=== PATIENT | female | born 1940 | race Caucasian/White ===

== ENCOUNTER 2016-11-03 08:08 | Outpatient (CLI) ==
[2016-11-03 15:35] LABS: BILIRUBIN,URINE Negative (NEGATIVE); KETONES,URINE Negative (NEGATIVE); LEUKOCYTE ESTERASE ,URINE Negative (NEGATIVE); NITRITE,URINE Negative (NEGATIVE); PROTEIN,URINE Negative (NEGATIVE); URINE, BLOOD Trace-intact (NEGATIVE)
[2016-11-03 15:36] LABS: BASOPHILS # (AUTO) 0.1 K/uL (0-0.2); BASOPHILS % (AUTO) 1.1 % (0.0-3.0); EOSINOPHILS # (AUTO) 0.2 K/ul (0.0-0.7); EOSINOPHILS % (AUTO) 3.1 % (0.0-7.0); HEMATOCRIT 38.4 % (37.0-47.0); HEMOGLOBIN 12.8 g/dl (12.0-16.0); IMMATURE GRANULOCYTE % (AUTO) 0.2 % (0.0-5.0); LYMPHOCYTES % (AUTO) 31.4 (10.0-50.0); MEAN CORPUSCULAR HEMOGLOBIN 27.4 pg (27.0-31.0); MEAN CORPUSCULAR HGB CONC 33.3 (31.8-35.4); MEAN CORPUSCULAR VOLUME 82.1 fl (81.0-99.0); MONOCYTES # (AUTO) 0.5 K/uL (0.4-2.0); MONOCYTES % (AUTO) 8.1 (0-10); NEUTROPHILS # (AUTO) 3.6 K/ul (2.0-6.9); NEUTROPHILS % (AUTO) 56.1; PLATELET COUNT 392 10^3/uL (140-440); RED BLOOD COUNT 4.68 10^6/ul (4.20-5.40); WHITE BLOOD COUNT 6.44 K/ul (4.6-10.2)
[2016-11-03 15:47] LABS: ANISOCYTOSIS 1+ (NOT PRESENT)
[2016-11-03 15:51] LABS: ADD URINE MICROSCOPIC YES
[2016-11-03 15:52] LABS: BACTERIA,URINE 1+ (NOT PRESENT)
[2016-11-03 16:11] LABS: ALBUMIN 3.9 g/dL (3.4-5.0); ALBUMIN/GLOBULIN RATIO 0.89; ANION GAP 16.6; BILIRUBIN,TOTAL 0.48 mg/dL (0.00-1.20); BUN/CREATININE RATIO 8.65; CHOL/HDL RATIO 3.9 (4.5-5.5); CREATININE 1.04 mg/dL (0.60-1.30); POTASSIUM 3.6 mmol/L (3.5-5.10); TOTAL PROTEIN 8.3 g/dL (5.8-8.1)
== END 2016-11-03 08:09 | disposition home or self-care (01) ==
LOC: LAB 08:08
PROVIDERS: ATTEND General Practice
DX: E78.5 Hyperlipidemia, unspecified (principal); I10 Essential (primary) hypertension; N18.3 Chronic kidney disease, stage 3 (moderate); Z79.899 Other long term (current) drug therapy
CPT/HCPCS: 36415; 80053; 80061; 81001; 85008; 85025

== ENCOUNTER 2016-11-11 12:37 | Outpatient (CLI) | payer OTHER ==
--- NOTE | 2016-11-11 13:59 | CT ---
EXAM: CT THORAX HISTORY: Chest pain and shortness of breath, lower left rib pain without injury. TECHNIQUE: CT thorax without intravenous contrast. 5-mm axial sections. Coronal and sagittal re-fo rmations. COMPARISON: None FINDINGS: Normal heart size. Trace pericardial fluid. There is moderate atherosclerotic disease of the aorta . A few nonspecific small mediastinal lymph nodes are seen. Lungs are hyperinflated. There is evidence of at least moderate chronic obstructive pulmonary disea se and scattered fibrosis. There is mild increased interstitial thickening in the right lung base wh ich could indicate acute infiltrate or additional or fibrosis. There is no pleural fluid or vascula r congestion. No pneumothorax. Biapical pleuroparenchymal thickening is likely related to fibrosis . There is no fracture or acute bony deformity identified. IMPRESSION: 1. Moderately severe chronic obstructive pulmonary disease is suggested, correlate clinically. 2. Questionable subtle right lung base pneumonia. 3. Atherosclerotic disease versus greater regional fibrosis. 4. No acute bony abnormality.
== END 2016-11-11 12:38 | disposition home or self-care (01) ==
LOC: RAD 12:37
PROVIDERS: ATTEND General Practice
DX: R07.9 Chest pain, unspecified (principal); Z72.0 Tobacco use

== ENCOUNTER 2016-12-15 10:46 | Outpatient (CLI) | payer OTHER ==
--- NOTE | 2016-12-15 11:53 | DI ---
EXAM: LEFT RIBS HISTORY: Chest pain FINDINGS: Left ribs three-view. No displaced fracture is identified. Left lung is clear. Incident al note of moderate atherosclerotic disease. IMPRESSION: Atherosclerosis. No rib fracture.
--- NOTE | 2016-12-15 11:53 | DI ---
EXAM: Radiographs, thoracic spine HISTORY: Thoracic spine pain. COMPARISON: Chest CT 11/11/2016. TECHNIQUE: Three-view. FINDINGS: Right convex curvature centered near the thoracolumbar junction noted. Alignment is norm al. Vertebral body heights are maintained. Disc heights are normal. No fracture or subluxation id entified. Soft tissues are unremarkable. IMPRESSION: No acute abnormality of the thoracic spine.
--- NOTE | 2016-12-15 11:56 | DI ---
EXAM: Radiographs, lumbar spine HISTORY: Low back pain. COMPARISON: None available. TECHNIQUE: Five views. FINDINGS: Right convex curvature centered near the thoracolumbar junction noted. Alignment is norm al. Vertebral body heights are maintained. There is moderate loss of disc height at L4-5 and mild loss of disc height at L2-3. Mild endplate osteophyte formation is present. Multilevel facet arthr opathy is greater in the lower lumbar spine. No fracture or subluxation detected. Sacral arcuate l mary are intact. Extensive aortic atherosclerotic calcifications noted. IMPRESSION: 1. Multilevel degenerative disc disease, greatest at L4-5. 2. Multilevel facet arthropathy, greater in the lower lumbar spine. 3. Right convex thoracolumbar curvature.
== END 2016-12-15 10:47 | disposition home or self-care (01) ==
LOC: RAD 10:46
PROVIDERS: ATTEND General Practice
DX: M54.6 Pain in thoracic spine (principal); M54.5 Low back pain; R07.9 Chest pain, unspecified

== ENCOUNTER 2017-02-03 09:15 | Outpatient (CLI) ==
--- NOTE | 2017-02-03 10:11 | US ---
EXAM: Ultrasound bilateral carotid duplex. HISTORY: Left carotid artery stenosis. COMPARISON: 07/26/2016. TECHNIQUE: Multiple powers scale and color Doppler images were obtained. FINDINGS: Please note that estimates of internal carotid artery stenoses are based upon NASCET rosanna eldridge. Right carotid: Calcified and soft plaquing noted without visualized 50% or greater stenosis. Peak systolic velocity measurement in the right internal carotid artery is 1.2 meters per second. Right internal to common carotid artery peak systolic velocity ratio measures 1.1. End diastolic velocity measurement in the right internal carotid artery is 0.3 meters per second. Flow in the right verte bral artery is antegrade. Left carotid: Calcified and soft plaquing noted. Calcified plaquing causes shadowing that is limit s evaluation for degree of stenosis. There may be a 50% stenosis in the proximal internal carotid a rtery. Peak systolic velocity measurement in the left internal carotid artery is 1.6 meters per sec ond. Left internal to common carotid artery peak systolic velocity ratio measures 1.5. End diastol ic velocity measurement in the left internal carotid artery measures 0.4 meters per second. Flow in the left vertebral artery is not identified. IMPRESSION: 1. Moderate, 50-69%, left internal carotid artery stenosis. 2. No evidence for 50% or greater stenosis in the right internal carotid artery. 3. Left vertebral artery flow is not identified which could be technical. Stenosis or occlusion no t excluded in the appropriate setting. 4. Antegrade flow in the right vertebral artery.
== END 2017-02-03 09:16 | disposition home or self-care (01) ==
LOC: RAD 09:15
PROVIDERS: ATTEND General Practice
DX: I65.22 Occlusion and stenosis of left carotid artery (principal); R09.89 Other specified symptoms and signs involving the circulatory and respiratory systems

== ENCOUNTER 2017-02-08 09:50 | Outpatient (CLI) ==
[2017-02-08 13:08] LABS: BILIRUBIN,URINE Negative (NEGATIVE); KETONES,URINE Negative (NEGATIVE); LEUKOCYTE ESTERASE ,URINE Negative (NEGATIVE); NITRITE,URINE Negative (NEGATIVE); PROTEIN,URINE Negative (NEGATIVE); URINE, BLOOD Negative (NEGATIVE)
[2017-02-08 13:21] LABS: ALBUMIN 3.6 g/dL (3.4-5.0); ALBUMIN/GLOBULIN RATIO 0.9; ANION GAP 18.9; BILIRUBIN,TOTAL 0.26 mg/dL (0.00-1.20); BUN/CREATININE RATIO 8.82; CALCIUM 9.7 mg/dL (8.2-10.2); CHOL/HDL RATIO 4.3 (4.5-5.5); CREATININE 1.02 mg/dL (0.60-1.30); POTASSIUM 3.9 mmol/L (3.5-5.10); TOTAL PROTEIN 7.6 g/dL (5.8-8.1)
[2017-02-08 13:23] LABS: BASOPHILS # (AUTO) 0.1 K/uL (0-0.2); BASOPHILS % (AUTO) 1.1 % (0.0-3.0); EOSINOPHILS # (AUTO) 0.1 K/ul (0.0-0.7); EOSINOPHILS % (AUTO) 1.6 % (0.0-7.0); HEMOGLOBIN 11.8 g/dl (12.0-16.0); IMMATURE GRANULOCYTE % (AUTO) 0.2 % (0.0-5.0); LYMPHOCYTES % (AUTO) 33.2 (10.0-50.0); MEAN CORPUSCULAR HEMOGLOBIN 24.8 pg (27.0-31.0); MEAN CORPUSCULAR HGB CONC 31.9 (31.8-35.4); MEAN CORPUSCULAR VOLUME 77.7 fl (81.0-99.0); MONOCYTES # (AUTO) 0.6 K/uL (0.4-2.0); MONOCYTES % (AUTO) 9.2 (0-10); NEUTROPHILS # (AUTO) 3.3 K/ul (2.0-6.9); NEUTROPHILS % (AUTO) 54.7; PLATELET COUNT 432 10^3/uL (140-440); RED BLOOD COUNT 4.76 10^6/ul (4.20-5.40); WHITE BLOOD COUNT 6.09 K/ul (4.6-10.2)
[2017-02-08 14:15] LABS: ADD URINE MICROSCOPIC YES
[2017-02-08 14:29] LABS: BACTERIA,URINE TRACE (NOT PRESENT)
== END 2017-02-08 09:51 | disposition home or self-care (01) ==
LOC: LAB 09:50
PROVIDERS: ATTEND General Practice
DX: I13.10 Hypertensive heart and chronic kidney disease without heart failure, with stage 1 through stage 4 chronic kidney disease, or unspecified chronic kidney disease (principal); N18.3 Chronic kidney disease, stage 3 (moderate); I77.9 Disorder of arteries and arterioles, unspecified; M54.5 Low back pain; R31.29 Other microscopic hematuria; I65.22 Occlusion and stenosis of left carotid artery; R09.89 Other specified symptoms and signs involving the circulatory and respiratory systems; E61.1 Iron deficiency; Z79.899 Other long term (current) drug therapy
CPT/HCPCS: 36415; 80053; 80061; 81001; 85025

== ENCOUNTER 2017-02-15 11:29 | Outpatient (CLI) ==
--- NOTE | 2017-02-15 12:23 | CT ---
EXAM: CT scan of the chest without contrast HISTORY: Weight loss, cough, smoker TECHNIQUE: Imaging of the chest was performed without contrast. 5 mm thin axial images and coronal and sagittal images were provided for interpretation. Comparison 11/11/2016. FINDINGS: There is stable appearance of a small noncalcified pulmonary nodule seen in the left lowe r lobe of the lung seen on axial image number 28. The findings measure approximately 3 mm maximum. Emphysematous changes are seen throughout the lungs. There is hyperinflation of the lungs. There is stable appearance of a small Pulmonary nodule seen in the left lower lobe of the lung seen on axial image number 46. The finding s measure 3.4 mm maximum. The lungs are otherwise clear. The heart is normal size. No mediastinal m asses are seen. There is diffuse atherosclerotic calcification of the thoracic aorta and coronary a rteries. No lytic or blastic lesions are seen within the osseous structures. There is a small nonob structing calculus seen within the inferior pole of the left kidney. IMPRESSION: There is stable appearance of two small noncalcified pulmonary nodules seen in the left lower lobe of the lung as described above. The findings measure 3-4 mm maximum. A 6-month follow-u p CT scan of the chest without contrast can be performed. Pulmonary emphysema.
[2017-02-15 15:41] LABS: OCCULT BLOOD INTERNAL QC 1 INTERNAL QC VALID; OCCULT BLOOD INTERNAL QC 2 INTERNAL QC VALID; OCCULT BLOOD INTERNAL QC 3 INTERNAL QC VALID; OCCULT BLOOD SAMPLE 1 NEGATIVE (NEGATIVE); OCCULT BLOOD SAMPLE 2 NO SPECIMEN RECEIVED (NEGATIVE); OCCULT BLOOD SAMPLE 3 NO SPECIMEN RECEIVED (NEGATIVE)
== END 2017-02-15 11:30 | disposition home or self-care (01) ==
LOC: RAD 11:29
PROVIDERS: ATTEND General Practice
DX: R63.4 Abnormal weight loss (principal); M89.9 Disorder of bone, unspecified; R05 Cough; F17.200 Nicotine dependence, unspecified, uncomplicated
CPT/HCPCS: 36415; 82272; 82306; 84443

== ENCOUNTER 2017-03-19 11:00 | Emergency (ER) ==
[2017-03-19] MEDS ORDERED: SODIUM CHLORIDE 1,000 ML IV STA (11:09)
[2017-03-19 11:10] VITALS: BP 144/57; TEMP 97.7; BMI 19.1
[2017-03-19 11:24] LABS: BASOPHILS # (AUTO) 0.1 K/uL (0-0.2); BASOPHILS % (AUTO) 0.6 % (0.0-3.0); EOSINOPHILS # (AUTO) 0.1 K/ul (0.0-0.7); EOSINOPHILS % (AUTO) 1.5 % (0.0-7.0); HEMATOCRIT 36.2 % (37.0-47.0); HEMOGLOBIN 11.7 g/dl (12.0-16.0); IMMATURE GRANULOCYTE % (AUTO) 0.1 % (0.0-5.0); LYMPHOCYTES # (AUTO) 2.3 K/uL (0.60-3.4); LYMPHOCYTES % (AUTO) 28.6 (10.0-50.0); MEAN CORPUSCULAR HEMOGLOBIN 25.1 pg (27.0-31.0); MEAN CORPUSCULAR HGB CONC 32.3 (31.8-35.4); MEAN CORPUSCULAR VOLUME 77.7 fl (81.0-99.0); MONOCYTES # (AUTO) 0.6 K/uL (0.4-2.0); NEUTROPHILS # (AUTO) 4.8 K/ul (2.0-6.9); NEUTROPHILS % (AUTO) 61.2; PLATELET COUNT 346 10^3/uL (140-440); RED BLOOD COUNT 4.66 10^6/ul (4.20-5.40); WHITE BLOOD COUNT 7.91 K/ul (4.6-10.2)
[2017-03-19 11:39] LABS: PROTHROMBIN TIME 10.5 SEC (9.3-11.0)
--- NOTE | 2017-03-19 11:41 | CT ---
EXAM: CT brain without contrast HISTORY: Left hand numbness TECHNIQUE: Multi-slice sequential. Coronal and sagittal reformations were performed. COMPARISON: None FINDINGS: There is no acute intracranial hemorrhage, extraxial fluid collection, mass affect, or midlineshift. Encephalomalacia in the left basal ganglia is seen. There is slight ex vacuo dilatation of the fro ntal horn of the left lateral ventricle. There is mild diffuse sulcal prominence. Ventricular prom inence is consistent with the degree of parenchymal volume loss. Periventricular white matter hypod ensity is seen. Intracranial atherosclerosis is present. The basal cisterns are patent. The alex rium is unremarkable. Visualized paranasal sinuses are clear. Mastoid air cells are clear. IMPRESSION: 1. No acute intracranial findings. 2. Left basal ganglia region encephalomalacia, likely related to prior insult. 3. Age-related changes of mild parenchymal volume loss, small vessel ischemic disease, and intracra nial atherosclerosis. 4. If there is clinical concern for acute ischemia, recommend MRI brain.
--- NOTE | 2017-03-19 11:46 | CT ---
CT thorax with out IV contrast. Clinical indication: Pneumothorax. Cough. TECHNIQUE: Axial unenhanced CT images of the thorax were obtained followed by coronal and sagittal reformats. Comparison is made to the prior study dated 02/15/2017. Findings: There is moderate underlying centrilobular emphysema. There is interval development of a hazy ill-defined opacity within the mid left upper lobe which was not present in January. There is no interval change in the tiny left left lower lobe pulmonary nodules. The remainder the p ulmonary parenchyma is unremarkable. There is no pleural abnormality. There are no enlarged axillary, hilar or mediastinal lymph nodes, by size criteria. There are extensive coronary artery calcifications. There is evidence of prior cholecystectomy. There is a 0.4 cm nonobstructive left-sided renal calculus. The remainder the visualized portions o f the upper abdomen are unremarkable. The visualized bony structures are unremarkable for the patient's age. Impression: 1. Interval development of heterogeneous opacity within the left upper lung zone most consistent wi th infectious etiology. 2. Moderate underlying centrilobular emphysema. 3. Extensive coronary artery calcifications. 4. 0.4 cm left-sided nonobstructive renal calculus.
[2017-03-19 11:52] LABS: ALBUMIN 3.7 g/dL (3.4-5.0); ANION GAP 15.8; BILIRUBIN,TOTAL 0.31 mg/dL (0.00-1.20); BUN/CREATININE RATIO 9.4; CALCIUM 9.9 mg/dL (8.2-10.2); CREATININE 1.17 mg/dL (0.60-1.30); POTASSIUM 3.8 mmol/L (3.5-5.10); TOTAL PROTEIN 7.4 g/dL (5.8-8.1); TROPONIN I 0.018 ng/ml (0.0000-0.4000)
--- NOTE | 2017-03-19 11:55 | CT ---
EXAM: CT abdomen and pelvis without contrast. HISTORY: Abdominal pain and diarrhea TECHNIQUE: Multi-slice transaxial helical CT. Coronal and sagittal reformatons were performed. COMPARISON: CT chest from same day. FINDINGS: The heart is normal in size. A 4 mm pulmonary nodule is present within the left lower lobe. The amber gs appear emphysematous. Evaluation of the solid organs is limited without IV contrast. Multiple bilateral nonobstructing re nal calculi are present within the left kidney which measures up to 4 mm in the inferior pole of the left kidney. No hydronephrosis is seen. The spleen is normal in size. The gallbladder has been r emoved. No intrahepatic biliary ductal dilation is seen. The pancreas and the bilateral adrenal gl ands appear grossly unremarkable within the confines of a noncontrast exam. Multiple dilated small bowel loops within the left upper quadrant measure up to 2.5 cm in diameter. Air-fluid levels are present within the small bowel loops. Distal collapsed small bowel loops are present. No evidence of free fluid layering within the pelvis is seen. A large amount of calcified plaques are present within the abdominal aorta and its major branch vessels. No retroperitoneal ad enopathy is seen. The urinary bladder appears unremarkable. The uterus has been removed. Multiple diverticuli are seen within the colon without evidence of diverticulitis. IMPRESSION: 1. Dilated proximal small bowel loops with air-fluid levels with more collapsed distal small bowel loops. This is compatible with a low grade partial small bowel obstruction versus focal enteritis/i leus. 2. Colonic diverticulosis. 3. 4 mm left basilar pulmonary nodule. Recommend follow-up CT chest in 12 months per 2017 Fleischne r Society guidelines. 4. Pulmonary emphysema. 5. Bilateral nonobstructing renal calculi. No hydronephrosis. 6. Multiple other age-related changes as detailed above.
[2017-03-19 12:02] LABS: ESR INTERNAL QC INTERNAL QC VALID
[2017-03-19 12:03] LABS: ERYTHROCYTE SEDIMENTATION RATE 22 mm/hr (0-20)
--- NOTE | 2017-03-19 12:06 | ED.PDOC ---
General ED Provider: Dr. LIANA HANKS-ER Chief Complaint: Abdominal Pain Stated Complaint: i had abd crmping and nonbloody diarrhea and then my left hand went numb Time Seen by Physician: 12:04 Mode of Arrival: Wheelchair Information Source: Patient Exam Limitations: No limitations [facility] Documentation Reviewed and Agree: Yes Neurological Complaint Exam - Neurological Deficit Complaint/Exam Patient Complains of: Reports: Abnormal sensation Symptom Onset Unknown: Yes Onset: Sudden Symptoms Are: Still present Timing: Constant Episodes Lasting: Hours Initial Severity: Mild Current Severity: Mild Location: Reports: LUE Character: Reports: Numbness, Tingling, Sensory loss Aggravating: Reports: Hypertension Alleviating: Reports: None Associated Signs and Symptoms: Denies: Confusion, Agitation, Responsiveness, LOC , Headache, Fever, Nuchal rigidity, Recent trauma, Remote trauma, Recent illness Related History: Denies: Similar episode, Anticoagulant therapy CVA Risk Factors: Reports: Hypertension, Smoking SDH Risk Factors: Reports: Elderly Related Surgical History: Denies: None, Craniotomy, Tumor, Carotid Endarterectomy, Pacemaker, Artificial valve Meningeal Signs Positive: No Focal Weakness: Present: None Focal Sensory Loss: Present: LUE Gait: Normal Nystagmus Present: No Gag Reflex Present: Yes [id number]: Normal Findings Romberg Test Positive: No Babinski Sign: Negative Right, Negative Left Heel to Toe Normal: Yes Signs of Trauma: No IV t-PA Prescribed: No Differential Diagnoses: TIA Quality Indicator For Non-Traumatic Chest Pain/Syncope: EKG Performed Review of Systems - Review Of Systems Constitutional: Reports: No symptoms Eyes: Reports: No symptoms Ears, Nose, Mouth, Throat: Reports: No symptoms Respiratory: Reports: No symptoms Cardiac: Reports: No symptoms GI: Reports: Abdominal pain, Diarrhea : Reports: No symptoms Musculoskeletal: Reports: No symptoms Skin: Reports: No symptoms Neurological: Reports: Numbness, Tingling Endocrine: Reports: No symptoms Hematologic/Lymphatic: Reports: No symptoms All Other Systems: Reviewed and Negative Past Medical History - Past Medical History Previously Healthy: Yes Endocrine: Reports: Unknown Cardiovascular: Reports: Hypertension Respiratory: Reports: Other Hematological: Reports: Unknown Gastrointestinal: Reports: Unknown Genitourinary: Reports: Unknown Neuro/Psych: Reports: Unknown Musculoskeletal: Reports: Unknown Cancer: Reports: Unknown Last Menstrual Period: none - Surgical History General Surgical History: Reports: Unknown - Family History Family History: Reports: Unknown - Social History Smoking Status: Current every day smoker Hx Substance Use: No Alcohol Screening: None Lives: With family Physical Exam - Physical Exam Appearance: Well-appearing, No pain distress, Well-nourished Eyes: JUDSON, EOMI, Conjunctiva clear ENT: Ears normal, Nose normal, Oropharynx normal Neck: Supple Respiratory: Airway patent, Breath sounds clear, Breath sounds equal, Respirations nonlabored Cardiovascular: RRR, Pulses normal, No rub, No murmur GI/: Soft Musculoskeletal: Normal strength, ROM intact, No edema, No calf tenderness Skin: Warm, Dry, Normal color Neurological: Sensation intact, Motor intact, Reflexes intact, Cranial nerves intact, Alert, Oriented Psychiatric: Affect appropriate, Mood appropriate, Anxious Interpretation - Radiology Interpretation Radiology Interpretation By: Radiologist Radiology Results: Negative Exam Interpreted: CT Scan - EKG Interpretation Time of EKG #1: 12:07 Rate: Normal Rhythm: Sinus Ectopy: None Reading: NL ST Segment: Normal Interpretation: nsr Physician Notification - Case Discussed Physician Notified: dr up--suggested transfer for neurology Physician Notified: dr du--accepted Time of Notification: 12:11 Critical Care Note - Critical Care Note Total Time (mins): 30 Course - Course Hematology/Chemistry: 03/19/17 11:15 03/19/17 11:15 Orders, Labs, Meds: Lab Review 03/19/17 11:15 WBC 7.91 RBC 4.66 Hgb 11.7 L Hct 36.2 L MCV 77.7 L MCH 25.1 L MCHC 32.3 RDW Coeff of Amanda 17.4 H Plt Count 346 Immature Gran % (Auto) 0.1 Neut % (Auto) 61.2 Lymph % (Auto) 28.6 [place] % (Auto) 8.0 Eos % (Auto) 1.5 Baso % (Auto) 0.6 Immature Gran # (Auto) 0.0 Neut # 4.8 Lymph # 2.3 [place] # 0.6 Eos # 0.1 Baso # 0.1 ESR 22 H PT 10.5 INR 1.03 Sodium 137 Potassium 3.8 Chloride 102 Carbon Dioxide 23 Anion Gap 15.8 BUN 11 Creatinine 1.17 Estimated GFR (MDRD) 45.00 BUN/Creatinine Ratio 9.40 Glucose 129 H Calcium 9.9 Total Bilirubin 0.31 AST 15 ALT 8 L Alkaline Phosphatase 67 Total Creatine Kinase 54 Troponin I 0.0180 Total Protein 7.4 Albumin 3.7 Globulin 3.7 Albumin/Globulin Ratio 1.00 Amylase 119 H Lipase 55 Orders Category Date Time Status EKG-(ED ONLY) Stat CARDIO 03/19/17 11:08 Ordered AMYLASE Stat LAB 03/19/17 11:15 Completed CBC W/ AUTO DIFF Stat LAB 03/19/17 11:15 Completed COMPREHENSIVE METABOLIC PANEL Stat LAB 03/19/17 11:15 Completed CREATINE KINASE Stat LAB 03/19/17 11:15 Completed ESR Stat LAB 03/19/17 11:15 Completed LIPASE Stat LAB 03/19/17 11:15 Completed PT WITH INR Stat LAB 03/19/17 11:15 Completed TROPONIN I Stat LAB 03/19/17 11:15 Completed URINALYSIS C & S IF INDICATED Stat LAB 03/19/17 11:08 Uncollected 0.9 % Sodium Chloride [Saline Flush] MEDS 03/19/17 11:09 Active 1 syr IVF PRN PRN Sodium Chloride 0.9% [Sodium Chloride] 1,000 ml MEDS 03/19/17 11:09 Active IV 100 mls/hr CT ABDOMEN/PELVIS WO CONTRAST Stat RADS 03/19/17 11:[address] CHEST W/O CONTRAST Stat RADS 03/19/17 11:[address] HEAD W/O CONTRAST Stat RADS 03/19/17 11:09 Completed Medications Generic Name Dose Route Start Last Admin Trade Name Freq PRN Reason Stop Dose Admin Sodium Chloride 1,000 mls @ 100 mls/hr 03/19/17 11:09 03/19/17 11:42 Sodium Chloride IV 03/19/17 21:08 100 mls/hr .Q10H STA Administration Sodium Chloride 1 syr 03/19/17 11:09 Saline Flush IVF PRN PRN To flush IV Vital Signs: Temp Pulse Resp BP Pulse Ox 03/19/17 11:03 97.7 F 86 18 144/57 H 96 Departure - Departure Time of Disposition: 12:08 Disposition: TSF SHORT-TRM HOSP Discharge Problem: TIA (transient ischemic attack) Qualifiers: Transient cerebral ischemia type: unspecified Qualifier Code: (G45.9) Transient cerebral ischemic attack, unspecified Instructions: Transient Ischemic Attack (ED) Condition: Good Pt referred to PMD for follow-up: Yes Allergies/Adverse Reactions: Allergies No Known Allergies Allergy (Verified 03/19/17 11:13) Home Medications: Ambulatory Orders Naproxen Sodium [Aleve] 220 mg PO BID 12/15/16 Transfer Form Completed: Yes Disposition Discussed With: Patient, Family
[2017-03-19] MEDS ORDERED: ASPIRIN CHEWABLE PO STA (12:13)
[2017-03-19] MEDS ORDERED: TRANDATE IVP STA (12:24)
== END 2017-03-19 12:45 | disposition short-term general hospital (02) ==
LOC: ED 11:00
DX: G45.9 Transient cerebral ischemic attack, unspecified (principal); I10 Essential (primary) hypertension; F17.210 Nicotine dependence, cigarettes, uncomplicated; R10.9 Unspecified abdominal pain; R19.7 Diarrhea, unspecified
CPT/HCPCS: 36415; 80053; 82150; 82550; 83690; 84484; 85025; 85610; 85651; 93005; 93010; 96361; 96374; 99285

== ENCOUNTER 2017-05-19 12:18 | Outpatient (CLI) ==
[2017-05-19 12:35] LABS: BASOPHILS # (AUTO) 0.1 K/uL (0-0.2); BASOPHILS % (AUTO) 1.6 % (0.0-3.0); EOSINOPHILS # (AUTO) 0.3 K/ul (0.0-0.7); EOSINOPHILS % (AUTO) 4.8 % (0.0-7.0); HEMATOCRIT 33.5 % (37.0-47.0); HEMOGLOBIN 10.6 g/dl (12.0-16.0); IMMATURE GRANULOCYTE % (AUTO) 0.2 % (0.0-5.0); LYMPHOCYTES % (AUTO) 36.4 (10.0-50.0); MEAN CORPUSCULAR HEMOGLOBIN 24.5 pg (27.0-31.0); MEAN CORPUSCULAR HGB CONC 31.6 (31.8-35.4); MEAN CORPUSCULAR VOLUME 77.5 fl (81.0-99.0); MONOCYTES # (AUTO) 0.5 K/uL (0.4-2.0); MONOCYTES % (AUTO) 8.7 (0-10); NEUTROPHILS # (AUTO) 2.7 K/ul (2.0-6.9); NEUTROPHILS % (AUTO) 48.3; PLATELET COUNT 335 10^3/uL (140-440); RED BLOOD COUNT 4.32 10^6/ul (4.20-5.40); WHITE BLOOD COUNT 5.61 K/ul (4.6-10.2)
[2017-05-19 12:41] LABS: BILIRUBIN,URINE Negative (NEGATIVE); KETONES,URINE Negative (NEGATIVE); LEUKOCYTE ESTERASE ,URINE 2+ (NEGATIVE); NITRITE,URINE Negative (NEGATIVE); PROTEIN,URINE Negative (NEGATIVE); URINE, BLOOD Negative (NEGATIVE)
[2017-05-19 12:45] LABS: ALBUMIN 3.6 g/dL (3.4-5.0); ANION GAP 13.9; BILIRUBIN,TOTAL 0.39 mg/dL (0.00-1.20); BUN/CREATININE RATIO 9.43; CREATININE 1.06 mg/dL (0.60-1.30); POTASSIUM 3.9 mmol/L (3.5-5.10); TOTAL PROTEIN 7.2 g/dL (5.8-8.1)
[2017-05-19 12:46] LABS: ADD URINE MICROSCOPIC YES
== END 2017-05-19 12:19 | disposition home or self-care (01) ==
LOC: LAB 12:18
PROVIDERS: ATTEND General Practice
DX: E55.9 Vitamin D deficiency, unspecified (principal); E61.1 Iron deficiency; I10 Essential (primary) hypertension; Z79.899 Other long term (current) drug therapy
CPT/HCPCS: 36415; 80053; 81001; 85025

== ENCOUNTER 2017-05-30 15:15 | Outpatient (CLI) | payer OTHER | END 2017-05-30 15:16 | disposition home or self-care (01) | LOC: CAR 15:15 | PROVIDERS: ATTEND General Practice | DX: R06.3 Periodic breathing (principal); R06.83 Snoring; G25.9 Extrapyramidal and movement disorder, unspecified | CPT/HCPCS: 95810 ==

== ENCOUNTER 2017-06-20 14:47 | Outpatient (CLI) | END 2017-06-20 14:48 | disposition home or self-care (01) | LOC: CAR 14:47 | PROVIDERS: ATTEND Internal Medicine Pulmonary Disease | DX: G47.33 Obstructive sleep apnea (adult) (pediatric) (principal) | CPT/HCPCS: 95811 ==

== ENCOUNTER 2017-08-29 12:08 | Outpatient (CLI) | END 2017-08-29 12:09 | disposition home or self-care (01) | LOC: LAB 12:08 | PROVIDERS: ATTEND General Practice | DX: E78.5 Hyperlipidemia, unspecified (principal); I10 Essential (primary) hypertension; Z79.899 Other long term (current) drug therapy | CPT/HCPCS: 36415; 80053; 80061; 85025 ==

== ENCOUNTER 2017-10-05 14:23 | Outpatient (CLI) | END 2017-10-05 14:24 | disposition home or self-care (01) | LOC: FCC-LAB 14:23 | PROVIDERS: ATTEND General Practice | DX: M79.604 Pain in right leg (principal); M79.605 Pain in left leg; E78.5 Hyperlipidemia, unspecified; I10 Essential (primary) hypertension; M54.5 Low back pain; G89.29 Other chronic pain; E61.1 Iron deficiency | CPT/HCPCS: 36415; 82550; 85025; 85651; 86140 ==

== ENCOUNTER 2017-10-07 13:04 | Inpatient (IN) | payer OTHER ==
--- NOTE | 2017-10-07 13:44 | ED.PDOC ---
General ED Provider: Dr. LIANA PATRICIO Chief Complaint: Weakness Stated Complaint: CC: Weakness and dizziness. HPI: This elderly female patient was shopping at [employer] when she suddenly felt lightheaded and weak. She was evaluated by Dr Garcias last week on . Has a know history of anemia and was concerned her symptoms could be related to her anemia. She became weak, dizzy while shopping today became very weak and shaky-dizzy and legs started aching--states nearly passed out. She was capable of ambulating into the ER. Noted that her voice was weak--color appeared slightly pale. Time Seen by Physician: 13:35 Mode of Arrival: Walk-In Information Source: Patient Primary Care Provider: SUNDAR GARCIAS[facility] Nursing and Triage Documentation Reviewed and Agree: Yes Reviewed sepsis parameters & appropriate labs ordered?: Yes System Inflammatory Response Syndrome: Not Applicable Sepsis Protocol: For patient's 13 years and over: Temp is 96.8 and below OR 101 and greater Pulse >90 BPM Resp >20/minute Acutely Altered Mental Status Are patient's symptoms suggestive of a new infection, such as: -Pneumonia -Skin, Soft Tissue -Endocarditis -UTI -Bone, Joint Infection -Implantable Device -Acute Abdominal Infection -Wound Infection -Meningitis -Blood Stream Catheter Infection -Unknown System Inflammatory Response Syndrome: Not Applicable Review of Systems - Review Of Systems Constitutional: Reports: Weakness Eyes: Reports: No symptoms Ears, Nose, Mouth, Throat: Reports: No symptoms Respiratory: Reports: No symptoms Cardiac: Reports: Lightheadedness, Palpitations, Other (NEAR SYNCOPE) GI: Reports: No symptoms : Reports: No symptoms Musculoskeletal: Reports: No symptoms Skin: Reports: No symptoms Neurological: Reports: No symptoms All Other Systems: Reviewed and Negative Past Medical History - Past Medical History Previously Healthy: Yes Endocrine: Reports: Unknown Cardiovascular: Reports: Hypertension Respiratory: Reports: Other Hematological: Reports: Unknown Gastrointestinal: Reports: None, Unknown Genitourinary: Reports: Unknown, Other (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) Neuro/Psych: Reports: None, Unknown Musculoskeletal: Reports: Unknown Cancer: Reports: Unknown Last Menstrual Period: hysterectomy - Surgical History General Surgical History: Reports: Unknown - Family History Family History: Reports: Unknown - Social History Smoking Status: Current every day smoker, Heavy tobacco smoker Hx Substance Use: No Alcohol Screening: None Physical Exam - Physical Exam Appearance: Thin Ill-appearing: None Pain Distress: None Eyes: JUDSON, EOMI, Conjunctiva clear ENT: Ears normal, Nose normal, Oropharynx normal Neck: Supple Respiratory: Airway patent, Breath sounds clear Cardiovascular: RRR, Pulses normal, No rub, No murmur GI/: Soft, Nontender, No masses, Bowel sounds normal Musculoskeletal: Normal strength, ROM intact, No edema Skin: Warm, Dry, Pale Neurological: Sensation intact, Motor intact, Alert, Oriented Psychiatric: Affect appropriate, Mood appropriate, Anxious Re-Evaluation - Re-Evaluation Time of Re-Evaluation: 15:40 Status: Unchanged Vital Signs Stable: Yes Appearance: NAD Lungs: Clear Skin: Warm and Dry Neuro: Alert and Oriented X3 CV: RRR Physician Notification - Case Discussed Physician Notified: DR RUFFIN Time of Notification: 15:50 (AGREED TO ADMISSION OF PATIENT) Critical Care Note - Critical Care Note Total Time (mins): 0 Course - Course Hematology/Chemistry: 10/07/17 13:50 10/07/17 13:50 Orders, Labs, Meds: Lab Review 10/07/17 10/07/17 13:50 13:50 WBC 6.47 RBC 3.53 L Hgb 8.0 L Hct 25.0 L MCV 70.8 L MCH 22.7 L MCHC 32.0 RDW Coeff of Amanda 17.6 H Plt Count 436 Immature Gran % (Auto) 0.3 Neut % (Auto) 46.1 Lymph % (Auto) 42.0 [place] % (Auto) 8.8 Eos % (Auto) 1.9 Baso % (Auto) 0.9 Immature Gran # (Auto) 0.0 Neut # (Auto) 3.0 Lymph # (Auto) 2.7 [place] # (Auto) 0.6 Eos # (Auto) 0.1 Baso # (Auto) 0.1 Sodium 137 Potassium 4.3 Chloride 103 Carbon Dioxide 24 Anion Gap 14.3 BUN 17 Creatinine 1.31 H Estimated GFR (MDRD) 39.00 BUN/Creatinine Ratio 12.97 Glucose 119 H Calcium 9.6 Iron 14 L TIBC 372 % Saturation 4 Unsat Iron Binding 358 H Total Bilirubin 0.3 AST 22 ALT 15 Alkaline Phosphatase 68 Total Protein 7.0 Albumin 3.4 Globulin 3.6 Albumin/Globulin Ratio 0.94 Orders Category Date Time Status EKG-(ED ONLY) Stat CARDIO 10/07/17 13:44 Completed CBC W/ AUTO DIFF Stat LAB 10/07/17 13:50 Completed CMP [COMPREHENSIVE METABOLIC PANEL] Stat LAB 10/07/17 13:50 Completed IRON AND TIBC Stat LAB 10/07/17 13:50 Completed Vital Signs: Temp Pulse Resp BP Pulse Ox 10/07/17 13:05 98.1 F 104 H 20 177/68 H 95 Departure - Departure Time of Disposition: 15:51 Disposition: ADMITTED INPATIENT Discharge Problem: Near syncope, Iron (Fe) deficiency anemia, Decreased GFR Condition: Good Pt referred to PMD for follow-up: Yes (DR MACHUCA AFTER DISCHARGE) IPMP verified?: No Allergies/Adverse Reactions: Allergies Sulfa (Sulfonamide Antibiotics) Adverse Reaction (Verified 10/07/17 13:10) Home Medications: Ambulatory Orders Naproxen Sodium [Aleve] 220 mg PO BID 12/15/16 Aspirin [Aspir-Low] 81 mg PO DAILY #90 tab-cap 03/19/17 Disposition Discussed With: Patient, Family
[2017-10-07 16:38] VITALS: BMI 17.6
[2017-10-07] MEDS ORDERED: TYLENOL PO PRN (17:45)
[2017-10-07] MEDS ORDERED: NON-FORMULARY MEDICATION (Losartan Potassium [Losartan Potassium] 50 MG) PO SCH (17:45)
[2017-10-07] MEDS ORDERED: UBIDECARENONE 100 MG PO SCH (17:45)
[2017-10-07] MEDS ORDERED: INFUVITE ADULT IV ONE (17:56)
[2017-10-07] MEDS ORDERED: COZAAR ONE (17:56)
[2017-10-07] MEDS: NORVASC PO SCH (18:08)
[2017-10-07] MEDS: INFUVITE ADULT 10 ML in D5%-1/2NS-KCL 20 MEQ/L IV SOL 1,000 ML IV SCH (18:19)
[2017-10-07] MEDS ORDERED: REQUIP ONE (20:10)
[2017-10-07] MEDS ORDERED: ROPINIROLE HCL 0.5 MG PO SCH (21:00)
[2017-10-08] MEDS ORDERED: INFUVITE ADULT IV ONE ×2 (06:16→22:45)
[2017-10-08] MEDS ORDERED: HYDROCHLOROTHIAZIDE 1.5 MG PO SCH (09:00)
[2017-10-08] MEDS: COZAAR PO SCH (09:22)
[2017-10-08] MEDS: HYDROCHLOROTHIAZIDE PO SCH (09:23)
[2017-10-08] MEDS: NORVASC PO SCH (09:23)
[2017-10-08] MEDS: INFUVITE ADULT 10 ML in D5%-1/2NS-KCL 20 MEQ/L IV SOL 1,000 ML IV SCH ×2 (11:59→22:53)
[2017-10-08] MEDS: NORCO 5-325 PO PRN (19:19)
[2017-10-08] MEDS: REQUIP PO SCH (21:06)
[2017-10-09] MEDS: INFUVITE ADULT 10 ML in D5%-1/2NS-KCL 20 MEQ/L IV SOL 1,000 ML IV SCH ×2 (09:22→12:32)
[2017-10-09] MEDS: HYDROCHLOROTHIAZIDE PO SCH (10:24)
[2017-10-09] MEDS: COZAAR PO SCH (10:24)
[2017-10-09] MEDS: NORVASC PO SCH (10:25)
--- NOTE | 2017-10-09 10:49 | CT ---
Exam: CT of the abdomen and pelvis with contrast History: Progressive anemia and weight loss Technique: [address] of the abdomen and pelvis following intravenous contrast FINDINGS: There is a 3.9 mm nodule in the left lung base. The lung bases are clear otherwise. There is a sub centimeter cyst in the right hepatic lobe. No focal liver abnormalities otherwise. Prior c holecystectomy. Intrahepatic and extrahepatic biliary prominence. There is a 3 mm nonobstructing ca lculus in the left kidney. The kidneys and collecting system are unremarkable otherwise. Mildly pro minent pancreatic duct. The spleen and adrenal glands appear normal. The appendix is not seen. Bowel loops demonstrate normal caliber. No inflamatory change seen in the mesentery or retroperitoneum. He pedro atherosclerotic calcification of the aorta without aneurysm. Heavy atherosclerotic calcification of the iliac system. Colonic diverticulosis of the sigmoid. No pelvic fat inflammation. Prior hysterectomy. Normal urin heron bladder. No acute abnormalities of the skeleton. Impression: 1. No inflammatory process, bowel or urinary obstruction is seen. 2. Prior cholecystectomy with intrahepatic and extrahepatic biliary prominence. Prior noncontrast s tudy is not helpful for comparison. 3. Single nonobstructing calculus of the left kidney 4. Colonic diverticulosis of the sigmoid
[2017-10-09] MEDS ORDERED: INFUVITE ADULT IV ONE ×2 (11:46→23:54)
[2017-10-09] MEDS: NORCO 5-325 PO PRN (12:43)
[2017-10-09] MEDS ORDERED: ZOFRAN 4 MG/2 ML IVP STA (17:39)
[2017-10-09] MEDS: REQUIP PO SCH (20:37)
[2017-10-10] MEDS ORDERED: INFUVITE ADULT IV ONE (07:05)
[2017-10-10] MEDS: INFUVITE ADULT 10 ML in D5%-1/2NS-KCL 20 MEQ/L IV SOL 1,000 ML IV SCH ×5 (07:48→16:08)
[2017-10-10] MEDS: HYDROCHLOROTHIAZIDE PO SCH (08:01)
[2017-10-10] MEDS: COZAAR PO SCH (08:01)
[2017-10-10] MEDS: NORVASC PO SCH (08:01)
--- NOTE | 2017-10-10 14:08 | PN ---
DATE OF VISIT: 10/08/17 SUBJECTIVE: The patient is alert and oriented. She is not dyspneic or tachypneic. She denied any abdominal pain or diarrhea. Rectal examination carried today showed no blood in the stool and Hemoccult was requested. Pelvic examination was negative. VITAL SIGNS: Temperature 98.4 orally, pulse 89, blood pressure 159/59, respiratory rate 20, oxygen saturation 97 at room air. I had advised the patient about the CAT scan of the abdomen and pelvis that will be done tomorrow. I had told her that I do not know the cause of her anemia. She obviously is low on iron and a low iron anemia could be due from a very poor intake of iron or an absorption problem. She does eat meat and occasionally green leafy vegetables. Her hgb today is 7.5 from 8 and Hct 23.8 from 25 and MCV is 70.4, MCH is 22.2, RDW 17.7. The EGFR is now 52 from 39, BUN 15 from 17, creatinine 1.03 from 1.31. Her serum iron was low 14 and saturation iron binding capacity elevated 358, Percent saturation 4, serum transferrin level is 323, normal, serum Ferritin level is 14.62 again normal. The patient's CEA is 5.8 elevated close to normal for smokers. Hemoccult was negative. The patient was advised that I would talk to Dr. Garcia after we have the CT scan of the abdomen and Pelvis. ELLYN
--- NOTE | 2017-10-10 14:10 | CT ---
EXAM: CT chest without contrast. HISTORY: Cough. Left upper lobe opacity follow-up. COMPARISON: 03/19/2017, 02/15/2017, 11/11/2016. TECHNIQUE: Multiple axial images of the chest were obtained without intravenous contrast. Images we re reformatted in the sagittal and coronal planes. FINDINGS: Evaluation for lymphadenopathy is limited by lack of intravenous contrast but heart size i s normal. There is a small amount pericardial fluid. Atherosclerotic calcifications are present wit hin the aorta and coronary arteries. Centrilobular emphysematous changes present bilaterally, severe in the upper lobes. A 0.4 cm left lo wer lobe nodule on axial image 45 is stable. Similar 0.4 cm left lower lobe nodule on axial image 28 is also stable. There is a 0.7 x 0.4 cm left upper lobe nodule on axial image 13 which is in the pr eviously noted area of more extensive consolidation. A right lower lobe nodule on coronal image 61 i s stable from the prior examination. No pleural effusion or pneumothorax identified. Limited images of the upper abdomen demonstrate nephrolithiasis. Degenerative changes present in the spine. IMPRESSION: A 0.7 x 0.4 cm left upper lobe nodule is present in the area of more extensive consolidation on the p rior examination, which likely represents postinflammatory scarring. Other lung nodules are stable. Follow-up in 6-12 months recommended for reassessment.
--- NOTE | 2017-10-10 14:20 | PN ---
DATE OF VISIT: 10/09/17 SUBJECTIVE: The patient is alert and no distress. She did have some nausea yesterday. The patient's fluid intake is less today 1,563 compared to 3,264 yesterday. The hgb did rise to 7.9 and hct 25.2. The telemetry does not show any cardiac arrhythmia or any pauses. HEART: Normal sinus rhythm LUNGS: Essentially the same, no rales although diminished CAT scan of the abdomen and pelvis today with oral and IV contrast showed no significant abnormalities. I did review this with the radiologist and he seemed to think that the stomach has some thickening in the wall somewhat mild. He felt that maybe an endoscopy should be performed. There is a 3.9mm nodule in the left lung base that was seen previously. There were two nodules then on the previous CT without contrast done 8 months ago. I had discussed the results with the patient and I told the patient that I would talk to Dr. Garcia and indeed did and he called me back and told me that she is on vacation and to call the office and maybe she would be able to see the patient sometime in January of this year. I did advise her about the severe anemia with 7.5grams hgb although there is no source of acute bleeding at this time. She told me that she has not seen this patient for last 14 years. I will discuss this with the patient and maybe need to see another identification printing machine setter in order to speed up the process. This patient will given a 2 unit transfusion and she was advised of this and as well as advised about the possible complications or adverse reaction of the transfusion. The Transfusion will or less be limited. She may very well need an IV infusion if an when there is no demonstrable reason for the anemia except the low iron. We will be looking a malignancy. There is no renal problem to account for the anemia. The CAT scan of the chest without contrast will probably be performed as a followup as advised by the radiologist. This patient continues to smoke and she had been advised several times to discontinue the habit. That had not been successful. MTDD
[2017-10-10 14:47] VITALS: TEMP 97.8
[2017-10-10 14:51] VITALS: BP 93/53
--- NOTE | 2017-10-13 13:43 | HP ---
CHIEF COMPLAINT: Extreme weakness, dizziness and near syncopal episode. SOURCE OF HISTORY: Patient. HISTORY OF PRESENT ILLNESS: The patient was shopping at [employer] today, Monday , and was lined at the checkout counter and experienced extreme weakness with her legs getting shaky and nearly passed out. The people around there did help her and she told them that she needed only to sit down, which she did for about half an hour. She then proceeded to go home and stopped at the emergency room. The patient was noted to be weak when she walked in and pale according to the nurse. The workup was done and her hemoglobin was 8 and also a lower hematocrit. The patient did not have any cardiac arrhythmia and the E GFR was decreased, but the BUN was slightly upper normal. The ER physician contacted me with regards to the patient's near syncopal episode and severe weakness with regards to how to manage the patient. I had seen this patient two to three days before this presentation to the emergency room and indeed she has a progressive anemia. She had a normal hemoglobin and hematocrit, although on the lower normal last October of 2016. The patient at the office was complaining of pain in the legs and was advised to discontinue Lipitor 80 mg and start taking CoQ 10 at 100 mg daily. The patient was to be followed in the office initially at two weeks, but was changed to one week for closer follow up of her condition. The patient was advised that she most likely would need a colonoscopy and she initially objected to that because she has significant problems with the preparation prior to the colonoscopy. She had one that was done years ago in [place]. The patient was then admitted for further workup and examination. PAST PERSONAL HISTORY: The patient had a total abdominal hysterectomy with one ovary left in place at age 25. She had a CT scan of the chest done 02/15/2017 because of weight loss, cough and a chronic smoker. There was stable appearance of two small lung calcified pulmonary nodules seen in the left lower lobe of the left lung as described. The findings measured 3 to 4 mm as the maximum. Follow up CT in six months was recommended. She also had appendectomy , as well as septal surgery. She is hypertensive and on medication. FAMILY HISTORY: Paternal side positive for heart problems and some had of myocardial infarction. On the mother's side was reportable for some kidney disease. SOCIAL HISTORY: The patient is a and resides alone and is self sufficient. Her children are supportive of her. She continues to smoke and had been smoking for some time and has no intention of stopping the habit. She does not drink any alcoholic beverages. MEDICATIONS: Prior to this admission: Aleve 220 mg twice a day Aspirin 81 mg daily Vitamin D2 50,000 units monthly Losartan 50 mg tablet daily Hydrocodone/APAP 5/325 mg one twice a day as needed Ropinirole 0.5 mg tablet at bedtime Amlodipine 5 mg daily CoQ 10 100 mg capsule daily Hydrochlorothiazide 12.5 mg daily ALLERGIES: Sulfa. REVIEW OF SYSTEMS: CONSTITUTIONAL: The patient had no fever or chills, but has extreme fatigue. NEWBORN PHOTOGRAPHER: The patient had dizziness and near syncopal episode recent. Orthostatic hypotension or cardiac arrhythmia. This needs to be determined. VISUAL: Denies any double vision or loss of vision. No blurred vision. AUDITORY: Hearing is adequate. Denies any pain or drainage in both ears. RESPIRATORY: The patient is a smoker and has cough, but no significant shortness of breath. This patient was diagnosed to have sleep apnea, but could not use the C-PAP. It makes her nervous. CARDIOVASCULAR: Denies any chest pain or chest tightness. GASTROINTESTINAL: The patient's appetite has decreased and had been losing weight. The patient denies any blood in her stool or any abdominal pain. GENITOURINARY: She denied any pain on urination. MUSCULOSKELETAL: The patient has pain below the knee and from the knees down to both feet, as well as legs. The pain keeps her awake. ENDOCRINE: Negative. INTEGUMENT: Denies any rash or pruritus. HEMATOLOGIC: No history of prolonged bleeding. PSYCHIATRIC: Affect appears to be normal. PHYSICAL EXAMINATION: GENERAL: We have a 77 year old female admitted to the hospital from the emergency room because of extreme weakness and near syncopal episode and dizziness, which is probably due to either orthostatic hypotension or some cardiac arrhythmia and may be due to bleeding also. This patient has a severe anemia. VITAL SIGNS: Temperature on the floor registered at 98.1 orally, pulse 99, blood pressure 212/85 on the left and 204/83 on the right. Respiratory rate 16 , oxygen saturation 97 at room air. She is 5'6" and weighed 109 pounds and 2 ounces. She is alert, oriented times four, not dyspneic nor tachypneic. She is not in any respiratory distress. HEAD: Unremarkable. Scalp with no active dermatitis. FACE: Symmetrical and equal with no facial weakness. EYES: Pupils equal/reactive to light and round. Conjunctivae pale. Sclerae not icteric. MOUTH: Unremarkable. THROAT: No inflammation, tumors or exudate. NECK: No masses. No bruit. No tenderness. No rigidity. CHEST: Essentially symmetrical and equal with good expansion with no tenderness. LUNGS: Breath sounds are heard in both sides, diminished. No rales or wheezing. HEART: Audible and regular with good tones. No murmurs and not tachycardic. ABDOMEN: Flat, soft with no significant tenderness. No muscular guarding. Bowel sounds are active. No masses. No bruit. PELVIC: The vaginal opening admits two fingers, but tight. The patient was complaining of some pain at the opening, so one finger was used to bimanual palpation and there are no adnexal masses and no tenderness. RECTAL: Anal sphincter is competent with no rectoanal tumor or masses. Stool is brownish in color. Hemoccult was obtained. LOWER EXTREMITIES: Symmetrical and equal. No significant edema. Posterior tibials are present, but the anterior tibials are not palpable. UPPER EXTREMITIES: Symmetrical and equal. NOTE: This patient also has a chronic back pain, which has been for some time and she claims that it is better. ASSESSMENT: 1. SUDDEN EPISODE OF EXTREME WEAKNESS 2. NEAR SYNCOPAL EPISODE CAUSE UNDETERMINED EITHER ORTHOSTATIC HYPOTENSION, CARDIAC ARRHYTHMIA 3. SEVERE ANEMIA IRON DEFICIENCY 4. HYPERTENSION 5. CHRONIC TOBACCO USE AND ABUSE 6. CHRONIC BACK PAIN, LUMBAR 7. BILATERAL LEG PAIN, ETIOLOGY UNDETERMINED, MAY BE DUE TO STATIN, LIPITOR 80 MG VERSUS ANEMIA IRON DEFICIENCY 8. WEIGHT LOSS PLAN: 1. This patient will be scheduled for a CT scan of the abdomen and pelvis with oral and IV contrast. 2. Obtain records of the colonoscopy that was done several years ago from Dr. Garcia. 3. The patient should have an endoscopy, plus a colonoscopy. 4. Work up for the iron deficiency anemia. 5. This patient would probably need a transfusion with a hemoglobin of 8, that with hydration this hemoglobin would probably go down further. 6. The patient should be placed on telemetry to rule out any cardiac reason for the extreme sudden episode of weakness. [facility]PITALRen[facility]
--- NOTE | 2017-10-19 12:12 | DS ---
PATIENT IDENTIFICATION: 77 year old female admitted to the hospital via the emergency room. This patient is known to have severe anemia. Recently seen at the office. Her hemoglobin was 8.6. The patient did complain of severe pain on both legs. The patient was taking Lipitor 80 mg daily because of the coronary artery disease and the patient was advised to discontinue the medication. The patient on the day of admission was shopping at [employer] and was going through the check out counter when the patient felt sudden weakness and near syncopal episode and passing out sensation. She was helped by the other customers and sat down for about a half an hour and then proceeded to go home. She presented to the emergency room at [facility] and was noted to be pale and weak. She did walk in. After the work up, the patient was found to have severe anemia with an 8 grams of hemoglobin, markedly low MCV and MCH and elevated RDW. The CMP showed GFR of 39, BUN 17, creatinine 1.31. Serum iron low at 14 and saturated iron binding capacity elevated at 358, serum transferrin level normal at 323, serum ferritin normal at 14.62. HOSPITAL COURSE: The patient while in the hospital remained alert and oriented times four. Not dyspneic, nor tachypneic. She still persisted to have pain in both legs. The patient while in the hospital remained afebrile. The blood pressures were taken supine and standing and they also included sitting. The blood pressure on standing is always lower than the supine and sitting. Some of the changes were as high as 40 mm of mercury difference. The patient's blood pressure on 10/10/17 supine blood pressure 119/54 and standing 193/58. That was the lowest measurements most of the time in the first two days or three days. Her blood pressure was elevated in the supine posture. The patient while in the hospital had a repeated CBC and chemistries. The hemoglobins lowest number was 7.5 from 8 on admission. The E GFR has more or less returned to acceptable level of 61. The patient's Aspirin, as well as Aleve, were discontinued during this hospitalization. The CT scan of the abdomen and pelvis with oral and IV contrast done 10/09/2017 showed no significant findings to account for the anemia. There may be slight thickening of the gastric wall upon review with the radiologist, however that was never mentioned with the radiologist who read the CT scan. I have discussed blood transfusion with the patient since she had a near syncopal episode that maybe a unit or two of transfusion would prevent the episode. The patient was agreeable. She was given a unit of red packed cells and her hemoglobin has risen to 9.9 and back down to 9.2 on the day of discharge. Hematocrit has risen to 28 from a low of 23.8. RDW is still high at 18.8. The patient at this point is feeling much better and claimed that the pain in both legs had resolved and does not have any this morning. I advised the patient to have a CT scan of the chest before going home, since this was the recommendation of the CT scan done 7 to 8 months ago. She was agreeable and the CT of the chest showed no increasing abnormal findings. Recommendation was to repeat in one year. The patient at discharge was alert with no distress and her son was with her. LUNGS: No rales, but diminished. HEART: Normal sinus rhythm. This patient was advised that Dr. Garcia would not see her maybe until January. I did advise her that I would try to find someone who can do the endoscopy and possibly colonoscopy for her. I felt that January is quite a long time with her problems. We needed some answers before then. The patient also had a reticulocyte count absolute that is 0.0333 and reticulocyte hemoglobin equivalent is 23.1, serum haptoglobin is 196 within the upper limits of normal. Carcinoembryonic antigen is 5.8, slightly beyond the upper limit of normal for somebody who is smoking. The TSH is normal at 1.281. The serum ferritin was 14.62 within normal, but lower and serum transferrin is 323, again within normal. The unsaturated iron binding capacity is 358. Iron saturation 4. TIBC 372, serum iron 14. Calcium 9.6. Hemoccult negative. Serum copper was requested, but no results. PLAN: 1. The patient was advised to see me a week from the time of discharge. 2. She is prescribed Feosol 45 mg capsule one daily or every other day. 3. Resume Amlodipine, Vitamin D 50,000 units monthly, Hydrocodone/APAP one tablet twice daily 5/325 mg, Losartan 50 mg tablet daily, Ropinirole 0.5 mg at bedtime, CoQ 10 100 mg daily. 4. Referral to the GI doctor will be pursued. The patient was advised that once we get the time and the date that we will inform her, as well as the address and the name of the consulting mold stamper and repairer. FINAL DIAGNOSES: 1. NEAR SYNCOPAL EPISODE, PROBABLY SECONDARY TO ORTHOSTATIC HYPOTENSION 2. ANEMIA, SEVERE, IRON DEFICIENCY, ETIOLOGY UNDETERMINED 3. CHRONIC TOBACCO USE AND ABUSE, PERSISTENT 4. CHRONIC OBSTRUCTIVE LUNG DISEASE, DIMINISHED BREATH SOUNDS ALL OVER, BOTH ANTERIOR AND POSTERIOR LUNG REYES 5. HYPERTENSION 6. LEG PAIN, RESOLVED. MAYBE SECONDARY TO LIPITOR OR ANEMIA. 7. PERIPHERAL ARTERIAL DISEASE THIS PATIENT WAS ADVISED VERY STRONGLY TO STOP SMOKING. PROGNOSIS: Guarded. MTDD
== END 2017-10-10 16:06 | disposition home or self-care (01) | DRG 812 ==
LOC: ED 13:04 → MEDSURG A 15:58
PROVIDERS: ADMIT General Practice; ATTEND General Practice
PROC: 30233N1 Transfusion of Nonautologous Red Blood Cells into Peripheral Vein, Percutaneous Approach (ICD-10-PCS; principal; 2017-10-09)
DX: D50.9 Iron deficiency anemia, unspecified (principal); I95.1 Orthostatic hypotension; R55 Syncope and collapse; R94.4 Abnormal results of kidney function studies; I10 Essential (primary) hypertension; R53.1 Weakness; R42 Dizziness and giddiness; I73.9 Peripheral vascular disease, unspecified; M79.605 Pain in left leg; M79.604 Pain in right leg; R91.1 Solitary pulmonary nodule; F17.210 Nicotine dependence, cigarettes, uncomplicated; I25.10 Atherosclerotic heart disease of native coronary artery without angina pectoris; J44.9 Chronic obstructive pulmonary disease, unspecified; G89.29 Other chronic pain; M54.5 Low back pain; R11.0 Nausea; G47.30 Sleep apnea, unspecified; Z79.899 Other long term (current) drug therapy
CPT/HCPCS: 36415; 36430; 80053; 82272; 82378; 82525; 82728; 83010; 83540; 83550; 84443; 84466; 85007; 85014; 85018; 85025; 85027; 85045; 86850; 86880; 86900; 86922; 93005; 93010; 99223; 99231; 99239; 99284

== ENCOUNTER 2017-10-19 16:04 | Outpatient (CLI) | END 2017-10-19 16:05 | disposition home or self-care (01) | LOC: FCC-LAB 16:04 | PROVIDERS: ATTEND General Practice | DX: I10 Essential (primary) hypertension (principal) ==

== ENCOUNTER 2017-11-02 15:04 | Outpatient (CLI) | payer OTHER | END 2017-11-02 15:05 | disposition home or self-care (01) | LOC: FCC-LAB 15:04 | PROVIDERS: ATTEND General Practice | DX: E61.1 Iron deficiency (principal) | CPT/HCPCS: 36415; 85025 ==

== ENCOUNTER 2018-02-05 09:10 | Outpatient (CLI) | payer OTHER ==
--- NOTE | 2018-02-05 10:40 | US ---
EXAM: Ultrasound bilateral carotid duplex. HISTORY: Dizziness. Memory loss. Hypertension. Headaches. Previous cerebrovascular accident. Le ft internal carotid artery stenosis. COMPARISON: 02/03/2017. TECHNIQUE: Multiple powers scale and color Doppler images were obtained. FINDINGS: Please note that estimates of internal carotid artery stenoses are based upon NASCET crite светлана. Right carotid: Mixed soft and calcified plaquing noted which causes near 50% stenosis in the carotid bulb and possibly the proximal internal carotid artery although shadowing limits evaluation. Peak s ystolic velocity measurement in the right internal carotid artery is 0.9 meters per second. Right in ternal to common carotid artery peak systolic velocity ratio measures 0.8. End diastolic velocity me asurement in the right internal carotid artery is 0.2 meters per second. Flow in the right vertebral artery is antegrade. Left carotid: Mixed soft and calcified plaquing noted which may cause 50% stenosis in the proximal i nternal carotid artery although shadowing limits evaluation. Peak systolic velocity measurement in t he left internal carotid artery is 1.3 meters per second. Left internal to common carotid artery pea k systolic velocity ratio measures 1.1. End diastolic velocity measurement in the left internal rodriguez tid artery measures 0.2 meters per second. Flow in the left vertebral artery is antegrade. IMPRESSION: 1. Grossly stable examination suggesting moderate, 50-69%, left internal carotid artery stenosis and mild, less than 50%, right internal carotid artery stenosis. 2. Antegrade flow in both vertebral arteries. 3. Given the degree of plaquing, CT angiography may be helpful for further characterization.
== END 2018-02-05 09:11 | disposition home or self-care (01) ==
LOC: RAD 09:10
PROVIDERS: ATTEND General Practice
DX: R09.89 Other specified symptoms and signs involving the circulatory and respiratory systems (principal)

== ENCOUNTER 2018-02-19 11:35 | Outpatient (CLI) | END 2018-02-19 11:36 | disposition home or self-care (01) | LOC: RHC-LAB 11:35 | PROVIDERS: ATTEND General Practice | DX: E61.1 Iron deficiency (principal) | CPT/HCPCS: 36415; 81001; 85025 ==

== ENCOUNTER 2018-02-21 09:52 | Outpatient (CLI) | END 2018-02-21 09:53 | disposition home or self-care (01) | LOC: FCC-LAB 09:52 | PROVIDERS: ATTEND General Practice | DX: E78.5 Hyperlipidemia, unspecified (principal); I10 Essential (primary) hypertension; Z79.899 Other long term (current) drug therapy | CPT/HCPCS: 36415; 80053 ==

== ENCOUNTER 2018-04-17 16:08 | Outpatient (CLI) | END 2018-04-17 16:09 | disposition home or self-care (01) | LOC: FCC-LAB 16:08 | PROVIDERS: ATTEND General Practice | DX: E78.5 Hyperlipidemia, unspecified (principal); I10 Essential (primary) hypertension; I77.9 Disorder of arteries and arterioles, unspecified; R09.89 Other specified symptoms and signs involving the circulatory and respiratory systems; E61.1 Iron deficiency; E55.9 Vitamin D deficiency, unspecified; Z79.899 Other long term (current) drug therapy | CPT/HCPCS: 36415; 80053; 80061; 81001; 85025 ==

== ENCOUNTER 2018-09-21 16:43 | Outpatient (CLI) | payer OTHER ==
[2018-07-09 10:06] VITALS: BMI 17.7
== END 2018-09-21 16:44 | disposition home or self-care (01) ==
LOC: RHC-LAB 16:43
PROVIDERS: ATTEND General Practice
DX: D64.9 Anemia, unspecified (principal)
CPT/HCPCS: 82272

== ENCOUNTER 2019-01-07 15:22 | Outpatient (CLI) ==
[2018-07-09 10:06] VITALS: BMI 17.7
--- NOTE | 2019-01-07 16:17 | US ---
EXAM: Bilateral lower extremity venous Doppler History: Bilateral lower extremity pain and swelling. Technique: Multiple sonographic images through the bilateral lower extremities were obtained. Color duplex Doppler was used to interrogate vascular flow. Findings: The bilateral common femoral, greater saphenous, profunda, superficial femoral, popliteal, peroneal, posterior tibial and anterior tibial veins demonstrate spontaneous flow with normal compre ssion and normal augmentation. Impression: No sonographic evidence for deep venous thrombosis
== END 2019-01-07 15:23 | disposition home or self-care (01) ==
LOC: RAD 15:22
PROVIDERS: ATTEND General Practice
DX: R19.7 Diarrhea, unspecified (principal); R10.9 Unspecified abdominal pain; R60.9 Edema, unspecified; R06.02 Shortness of breath; M79.604 Pain in right leg
CPT/HCPCS: 36415; 83880

== ENCOUNTER 2019-01-08 09:37 | Outpatient (CLI) ==
[2018-07-09 10:06] VITALS: BMI 17.7
--- NOTE | 2019-01-08 11:25 | CT ---
EXAM: CT of the abdomen pelvis without contrast History: Diarrhea. Comparison: CT abdomen pelvis 10/09/2017 Technique: Multiplanar CT images through the abdomen pelvis were obtained without the administration of IV contrast Findings: Trace pericardial fluid. Small right pleural effusion. Subsegmental atelectasis seen wit hin the lower lungs. No acute osseous abnormalities. Moderate degenerative disc disease at L4-L5. Status post cholecystectomy. No focal liver or splenic lesions. Bifurcating abdominal aortic stent graft. No peripancreatic inflammation. Adrenal glands are unremarkable. 2 mm bilateral renal calcu li. No hydronephrosis and no perinephric stranding. There is mild to moderate wall thickening invol ving the descending colon and proximal sigmoid colon. Colonic diverticulosis. No evidence for bowel obstruction. No free air and no ascites. No bladder wall thickening. Uterus is not seen and likel y has been surgically removed. Scattered colonic stool. Evaluation for lymph nodes is limited due t o the lack of contrast administration but no bulky adenopathy is seen. There is some mild body wall edema. Impression: 1. Mild to moderate colitis of the descending colon and proximal sigmoid colon. Etiology is most li akhil infectious/inflammatory. 2. Nonobstructing bilateral nephrolithiasis. 3. Colonic diverticulosis. 4. Small right pleural effusion. 5. Bifurcating aortic stent graft
[2019-01-09 15:13] VITALS: BMI 19.4
== END 2019-01-08 09:38 | disposition home or self-care (01) ==
LOC: RAD 09:37
PROVIDERS: ATTEND General Practice
DX: R19.7 Diarrhea, unspecified (principal); R10.9 Unspecified abdominal pain; R60.9 Edema, unspecified; R06.02 Shortness of breath
CPT/HCPCS: 87177; 87493

== ENCOUNTER 2019-01-09 14:30 | Inpatient (IN) ==
[2019-01-09 15:13] VITALS: BMI 19.4
[2019-01-09] MEDS ORDERED: DRISDOL PO SCH (17:00)
[2019-01-09] MEDS: LOVENOX SUBCUT SCH (17:14)
[2019-01-09] MEDS: D5%-1/2NS-KCL 20 MEQ/L IV SOL 1,000 ML IV SCH (20:25)
[2019-01-09] MEDS: COZAAR PO SCH (20:25)
[2019-01-09] MEDS: REQUIP PO SCH (20:25)
[2019-01-09] MEDS ORDERED: NON-FORMULARY MEDICATION (Losartan Potassium [Losartan Potassium] 50 MG) PO SCH (21:00)
[2019-01-10] MEDS: FERROUS SULFATE PO SCH (05:34)
[2019-01-10] MEDS: D5%-1/2NS-KCL 20 MEQ/L IV SOL 1,000 ML IV SCH ×2 (08:45→21:35)
[2019-01-10] MEDS: LOVENOX SUBCUT SCH (08:50)
[2019-01-10] MEDS: NORVASC PO SCH (08:51)
[2019-01-10] MEDS: LIPITOR PO SCH (08:51)
[2019-01-10] MEDS: HYDROCHLOROTHIAZIDE PO SCH (08:51)
[2019-01-10] MEDS: COZAAR PO SCH ×2 (08:51→20:46)
[2019-01-10] MEDS ORDERED: NON-FORMULARY MEDICATION (Atorvastatin Calcium [Atorvastatin Calcium] 80 MG) PO SCH (09:00)
[2019-01-10] MEDS ORDERED: NON-FORMULARY MEDICATION (Ferrous Sulfate [Feosol] 325 MG) PO SCH (09:00)
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
[2019-01-10] MEDS ORDERED: FLAGYL 500 MG/100 ML 500 MG in PREMIX 100 ML NS 1 BAG IV SCH (17:30)
[2019-01-10] MEDS ORDERED: MAXIPIME IV ONE (17:41)
[2019-01-10] MEDS ORDERED: FLAGYL 500 MG/100 ML 100 ML IV ONE ×2 (17:41→21:33)
[2019-01-10] MEDS: MAXIPIME 2 GM in SODIUM CHLORIDE 100 ML IV SCH ×2 (18:53→20:45)
[2019-01-10] MEDS: REQUIP PO SCH (20:46)
[2019-01-10] MEDS: FLAGYL 500 MG/100 ML 500 MG in PREMIX 100 ML NS 1 BAG IV SCH (21:35)
[2019-01-11] MEDS ORDERED: FLAGYL 500 MG/100 ML 100 ML IV ONE (05:04)
[2019-01-11] MEDS ORDERED: MAXIPIME IV ONE (05:05)
[2019-01-11] MEDS: MAXIPIME 2 GM in SODIUM CHLORIDE 100 ML IV SCH ×3 (05:09→22:13)
[2019-01-11] MEDS: FLAGYL 500 MG/100 ML 500 MG in PREMIX 100 ML NS 1 BAG IV SCH ×3 (05:09→20:40)
[2019-01-11] MEDS: FERROUS SULFATE PO SCH (05:40)
[2019-01-11] MEDS: HYDROCHLOROTHIAZIDE PO SCH (08:11)
[2019-01-11] MEDS: LIPITOR PO SCH (08:11)
[2019-01-11] MEDS: COZAAR PO SCH ×2 (08:11→20:41)
[2019-01-11] MEDS: NORVASC PO SCH (08:11)
[2019-01-11] MEDS: LOVENOX SUBCUT SCH (08:13)
[2019-01-11] MEDS: D5%-1/2NS-KCL 20 MEQ/L IV SOL 1,000 ML IV SCH (12:50)
[2019-01-11] MEDS: REQUIP PO SCH (20:41)
[2019-01-12] MEDS: MAXIPIME 2 GM in SODIUM CHLORIDE 100 ML IV SCH (04:17)
[2019-01-12 05:25] VITALS: BP 148/77; TEMP 98.2
[2019-01-12] MEDS: FLAGYL 500 MG/100 ML 500 MG in PREMIX 100 ML NS 1 BAG IV SCH (05:39)
[2019-01-12] MEDS: FERROUS SULFATE PO SCH (05:39)
[2019-01-12] MEDS: COZAAR PO SCH (08:18)
[2019-01-12] MEDS: NORVASC PO SCH (08:19)
[2019-01-12] MEDS: LIPITOR PO SCH (08:19)
[2019-01-12] MEDS: HYDROCHLOROTHIAZIDE PO SCH (08:19)
[2019-01-12] MEDS: LOVENOX SUBCUT SCH (08:24)
[2019-01-12] MEDS: D5%-1/2NS-KCL 20 MEQ/L IV SOL 1,000 ML IV SCH ×2 (08:47)
--- NOTE | 2019-01-15 13:12 | DS ---
DATE OF SERVICE: 01/12/19 PATIENT IDENTIFICATION: 78 year old female who continued to complain of abdominal pain, some bloating was previous admitted for the same problem at [facility] on and discharged 6 days later with intervenous medication and fluids. The patient had a CAT scan of [facility] of the abdomen and pelvis showing findings compatible with colitis of the distal transverse colon descending as well as the proximal sigmoid. HOSPITAL COURSE: She was discharged of Cefdinir plus Flagyl. The patient's CAT scan done early in the day showed findings similar to what was found at [facility] in [place]. Because of the continued abdominal pain and several findings that this patient was admitted to the hospital for further investigation, fluid and electrolyte replacement. The patient also had a severe anemia. Blood culture was done as well as stool culture and also stool for ova and parasites as well as other parasites such as Campylobacter and Yersinia. This patient had not eaten anything from a restaurant and had not been out of town. The patient was treated with Cefepime 2 grams intervenous every 8 hours and Flagyl 500mg intervenously ever 8. The abdominal pain has decreased and the patient was feeling well yesterday 01/11/19. She was wanting to probably go home. I told her that we still do not have the results as we would like to finish the medication and possibly go home tomorrow if all things are better and the vital signs are stable. The patient's labs showed severe anemia, normal WBC and normal plt count slightly above normal. Hgb on admission 8.6, hct 27.8 and on 01/10/19 hgb down to 7.7 from 8.6 and hct down to 25.1 from 27.8 and on 01/11/19 hgb remained stable 7.6 from 7.7 yesterday and hct 23.8 from 25.1. The hgb today is stable at 7.6 and hct 24.5, 01/12/19. electrolytes are normal, sodium slightly lower but not clinically significant. Total protein slightly below normal, Procalcitonin normal below 0.05, Heme occult positive. Serology Giardia lamblia negative. Ova and parasites negative. Blood culture negative. Clostridium difficile,no results at this time. The patient today is alert and oriented times four not dyspneic or tachypneic. She had some nausea and blamed it on the food intolerance. VITALS SIGNS: Temperature 98.2, pulse 80, blood pressure 140/77, respiratory rate 20 and oxygen saturation 93% at room air. This patient has stopped smoking several months ago. She claimed that she had not smoked at all. LUNGS: Diminished breath sounds in both sides. No rales or wheezing. Clear to auscultation. HEART: Audible and regular with good tones. No murmurs ABDOMEN: Soft with no remarkable tenderness today. Bowel sounds are active to slightly hyperactive but no bruit. Incisions in both groins are healed well. LOWER EXTREMITIES: NO edema. Anterior tibials are palpable. The edema indeed as regressed remarkable with patient in bed and elevated legs. I did advise the patient that the stool examination was negative for any ova and parasites. Blood culture is negative. Also mentioned that I had talked to be Dr. Calvin Coy a partner of Dr. Garcia. Dr. Coy recommended that I call or she call the office on Monday to make an appointment for probable colonoscopy. This patient was advised to eat a gluten free diet. Anything that is wheat in origin is gluten. Gluten is wheat, rye and barley and sometimes oats. She should look at the label for food that she buys. She is able to eat meat and should not eat anything that has wheat, rye and barley. This patient had received Flagyl while in the hospital as well Cefepime and this will be continued post discharge with Cefepime 2gram being administered every 12 hours at the hospital and Flagyl 500mg three times a day or every 8 hours for the next 5 days. This patient is to see me 5 days from today and before is there is any concerns. FINAL DIAGNOSES: 1. Segmental colitis involving the distal transverse colon, descending colon and proximal sigmoid 2. Severe anemia, iron deficiency 3 Peripheral arterial disease, improved post surgery 4. Generalized abdominal pain probably secondary to colitis 5. Hypertension, on medication 6. Chronic tobacco use, stopped several months ago 7. History of chronic lumbar pain. TIME SPENT: GREATER THAN 30 MINUTES MTDD
[2019-01-28] MEDS ORDERED: DRISDOL PO SCH (09:00)
== END 2019-01-12 12:40 | disposition home or self-care (01) | DRG 392 ==
LOC: MEDSURG B 14:30
PROVIDERS: ADMIT General Practice; ATTEND General Practice
DX: K52.9 Noninfective gastroenteritis and colitis, unspecified (principal); D50.9 Iron deficiency anemia, unspecified; I10 Essential (primary) hypertension; I73.9 Peripheral vascular disease, unspecified; M54.5 Low back pain; R53.1 Weakness; R19.7 Diarrhea, unspecified; Z72.0 Tobacco use
CPT/HCPCS: 36415; 80053; 82150; 82272; 82607; 83540; 83550; 83690; 84145; 85008; 85014; 85018; 85025; 87015; 87040; 87045; 87046; 87177; 87329; 87899; 93005; 93010; 96365; 97802

== ENCOUNTER 2019-01-12 19:43 | Outpatient (RCR) | payer OTHER ==
[2019-01-12] MEDS ORDERED: MAXIPIME 2 GM in SODIUM CHLORIDE 100 ML IV STA (20:12)
[2019-01-12 21:47] VITALS: BP 160/61; TEMP 98.3
== END 2019-01-12 21:33 | disposition home or self-care (01) ==
LOC: OPMED 19:43
PROVIDERS: ATTEND General Practice
DX: R10.9 Unspecified abdominal pain (principal)
CPT/HCPCS: 96365

== ENCOUNTER 2019-01-13 08:07 | Outpatient (CLI) | payer OTHER ==
[2019-01-13] MEDS ORDERED: MAXIPIME 2 GM in SODIUM CHLORIDE 100 ML IV STA (08:13)
[2019-01-13 08:29] VITALS: BP 134/76; TEMP 97.9
== END 2019-01-13 08:08 | disposition home or self-care (01) ==
LOC: OPMED 08:07
PROVIDERS: ATTEND General Practice
DX: R10.9 Unspecified abdominal pain (principal)
CPT/HCPCS: 96365

== ENCOUNTER 2019-01-13 19:51 | Outpatient (CLI) | payer OTHER ==
[2019-01-13 20:05] VITALS: BP 128/60; TEMP 98
[2019-01-13] MEDS ORDERED: MAXIPIME 2 GM in SODIUM CHLORIDE 100 ML IV SCH (21:00)
== END 2019-01-13 21:50 | disposition home or self-care (01) ==
LOC: OPMED 19:51
PROVIDERS: ATTEND General Practice
DX: R10.9 Unspecified abdominal pain (principal)
CPT/HCPCS: 96365

== ENCOUNTER 2019-01-14 07:48 | Outpatient (CLI) | payer OTHER ==
[2019-01-14] MEDS ORDERED: MAXIPIME 2 GM in SODIUM CHLORIDE 100 ML IV STA ×2 (08:04→19:42)
[2019-01-14] MEDS ORDERED: MAXIPIME IV ONE (19:51)
[2019-01-14 19:54] VITALS: BP 140/69; TEMP 97.8
== END 2019-01-14 07:49 | disposition home or self-care (01) ==
LOC: OPMED 07:48
PROVIDERS: ATTEND General Practice
DX: R10.9 Unspecified abdominal pain (principal)
CPT/HCPCS: 96365

== ENCOUNTER 2019-01-14 19:25 | Outpatient (CLI) | payer OTHER ==
[2019-01-14] MEDS ORDERED: MAXIPIME 2 GM in SODIUM CHLORIDE 100 ML IV STA (20:02)
[2019-01-14 21:19] VITALS: BP 126/60; TEMP 98.3
== END 2019-01-14 21:30 | disposition home or self-care (01) ==
LOC: OUTPT 19:25 → OPMED 21:30
PROVIDERS: ATTEND General Practice
DX: R10.9 Unspecified abdominal pain (principal)
CPT/HCPCS: 96365

== ENCOUNTER 2019-01-15 07:51 | Outpatient (CLI) ==
[2019-01-15] MEDS ORDERED: MAXIPIME 2 GM in SODIUM CHLORIDE 100 ML IV STA ×2 (08:04→19:37)
[2019-01-15 19:42] VITALS: BP 155/63; TEMP 98.5
[2019-01-15] MEDS ORDERED: MAXIPIME IV ONE (19:43)
== END 2019-01-15 20:50 | disposition home or self-care (01) ==
LOC: OPMED 07:51
PROVIDERS: ATTEND General Practice
DX: R10.9 Unspecified abdominal pain (principal)
CPT/HCPCS: 96365

== ENCOUNTER 2019-01-16 07:42 | Outpatient (CLI) ==
[2019-01-16] MEDS ORDERED: MAXIPIME 2 GM in SODIUM CHLORIDE 100 ML IV STA (07:57)
[2019-01-16] MEDS ORDERED: SODIUM CHLORIDE 50 ML IV ONE (07:59)
== END 2019-01-16 07:43 | disposition home or self-care (01) ==
LOC: OPMED 07:42
PROVIDERS: ATTEND General Practice
DX: R10.9 Unspecified abdominal pain (principal)
CPT/HCPCS: 96365

== ENCOUNTER 2019-01-17 11:57 | Outpatient (CLI) | END 2019-01-17 11:58 | disposition home or self-care (01) | LOC: RHC-LAB 11:57 | PROVIDERS: ATTEND General Practice | DX: K52.9 Noninfective gastroenteritis and colitis, unspecified (principal); D50.9 Iron deficiency anemia, unspecified; R10.84 Generalized abdominal pain; K55.20 Angiodysplasia of colon without hemorrhage | CPT/HCPCS: 36415; 85025 ==

== ENCOUNTER 2019-01-24 08:03 | Outpatient (CLI) | payer OTHER | END 2019-01-24 08:04 | disposition home or self-care (01) | LOC: RHC-LAB 08:03 | PROVIDERS: ATTEND General Practice | DX: R09.89 Other specified symptoms and signs involving the circulatory and respiratory systems (principal); I65.22 Occlusion and stenosis of left carotid artery | CPT/HCPCS: 36415; 80053; 80061; 85025 ==